=== PATIENT | male | born 1960 | race Caucasian/White ===

== ENCOUNTER → 2021-04-07 13:20 | Outpatient (CLI) | payer OTHER, SELFPAY ==
--- NOTE | 2021-04-07 13:23 | CT_ITS ---
STUDY: CT LEFT LOWER EXTREMITY WITHOUT CONTRAST REASON FOR EXAM: Varus deformity, osteoarthritis, surgical planning. TECHNIQUE: Transaxial CT imaging of the lower extremity was performed. Coronal and sagittal images were reformatted. Individualized dose optimization techniques were used for this CT. COMPARISON: None. FINDINGS: Knee: There are small marginal osteophytes, mild subchondral eburnation and mild joint space narrowing of the medial femorotibial compartment (coronal reconstruction 30). There is a cyst in the proximal tibia near the insertion site of the posterior cruciate ligament. There are small marginal osteophytes with preservation of joint space of the lateral femorotibial compartment. There are small marginal osteophytes and mild joint space narrowing of the lateral aspect of the patellofemoral compartment (axial image 168). Normal proximal tibiofibular articulation. There is a moderate-sized joint effusion. The quadriceps tendon is grossly normal. The patellar tendon is grossly normal. Normal Hoffa''s fat pad. There is an intra-articular body in the intercondylar notch (sagittal reconstruction 36) measuring 0.5 cm in AP dimension. There is a smaller intra-articular body posterior to the root of the posterior horn of the medial meniscus (coronal reconstruction 44). Hip: There is left hip arthrosis with joint space narrowing (coronal reconstructions 59) and subchondral cystic change of the lateral acetabulum. There is a small os acetabula. Ankle: Normal tibiotalar, posterior subtalar and talonavicular articulations. There is vascular calcification. CT/Extremity Lower without Contra IMPRESSION: Left knee arthrosis with joint effusion and intra-articular bodies. Electronically Signed: Salvador Ellis MD at 9:59 EDT Tel , Service support ,
== END ==
PROVIDERS: Referring Provider Orthopaedic Surgery; Visit Provider Orthopaedic Surgery
DX: M21.161 Varus deformity, not elsewhere classified, right knee (principal); M17.12 Unilateral primary osteoarthritis, left knee
CPT/HCPCS: 73700

== ENCOUNTER 2022-11-23 13:07 | Emergency (ER) | payer OTHER, SELFPAY ==
[2022-11-23 13:08] VITALS: BP 151/123; PULSE 73; RESP 12; TEMP 36.1; BMI 21.3
--- NOTE | 2022-11-23 13:11 | EKG12_ITS ---
Test Reason : CP Blood Pressure : / mmHG Vent. Rate : 074 BPM Atrial Rate : 074 BPM P-R Int : 130 ms QRS Dur : 084 ms QT Int : 398 ms P-R-T Axes : 068 068 068 degrees QTc Int : 441 ms Somatic/Motion Artifact Normal sinus rhythm Low voltage QRS Nonspecific ST abnormality Abnormal ECG Confirmed by FORTUNATO SIFUENTES, KENNEDY ([id number]), manager editorial ANDI HORAN ([id number]) on 11/25/2022 9:37:22 AM Referred By: LIDA Confirmed By:KENNEDY BUCIO MD
[2022-11-23 13:23] VITALS: PULSE 71; RESP 18; O2SAT 91
[2022-11-23 13:27] LABS: Absolute Lymphocyte Count 1.18 X10^3/uL (0.83-4.51); Absolute Neutrophil Count 1.6 X10^3/uL (2.0-7.7); Basophil# 0.02 X10^3/uL; Basophil% 0.6 % (0-1); Eosinophil# 0.27 X10^3/uL; Eosinophils% 7.7 % (0-5); Hematocrit 31.8 % (40-54); Hemoglobin 10.3 g/dL (13.0-16.5); Lymphocyte # 1.18 X10^3/ul (0.83-4.51); Lymphocyte % 33.8 % (19-41); Mean Corp Hgb Conc 32.4 g/dL (32-36); Mean Corpuscular Hgb 27.7 pg (27.0-32.0); Mean Corpuscular Volume 85.5 fL (80-94); Mean Platelet Vol. 8.7 fl (6.2-12.0); Monocyte# 0.47 X10^3/uL; Monocyte% 13.5 % (0-10); NRBC Flagged by Analyzer 0 % (0-5); Neutrophil # 1.55 X10^3/uL (2.7-7.7); Neutrophil % 44.4 % (47-70); Platelet Count 107 K/mm3 (150-450); RBC Distribution Width CV 14.3 % (11.6-14.6); RBC Distribution Width SD 44.5 fl (35.1-43.9); Red Blood Count 3.72 M/mm3 (4.6-6.2); White Blood Count 3.5 K/mm3 (4.4-11.0)
[2022-11-23 13:28] VITALS: O2SAT 100
--- NOTE | 2022-11-23 13:42 | EDS_ITS ---
HPI <JOSELINE Amaro - Last Filed: 11/23/22 20:49> History of Present Illness Chief Complaint: Palpitations Narrative Narrative: Patient presents today with his after feeling like his heart was racing for a short period of time earlier this afternoon. is the primary historian. She states patient has a history of Parkinson's, and is post nephrectomy due to stage III or IV renal cell carcinoma. She states she is frustrated with the care that he is receiving from his PCP, neurologist, and oncologist. She thinks he is overmedicated, is weak, confused, not eating, vomiting, losing weight, and falling a lot. She wants all of his medications to be reviewed today. She would like us to refer patient to new doctors. No chest pain, fever, shortness of breath, abdominal pain, or heart palpitations. 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 Kidney disease Parkinson disease Renal cell carcinoma Tonsillectomy planned Tumors Home Medications acetaminophen 650 mg tablet,extended release (Tylenol Arthritis Pain) 650 mg PO Q12H PRN 03/19/22 [History Last Taken Unknown] amlodipine 5 mg tablet tablet PO 03/19/22 [History Last Taken Unknown] carbidopa ER 25 mg-levodopa 100 mg tablet,extended release tablet PO 03/19/22 [History Last Taken Unknown] famotidine 20 mg tablet 20 mg PO DAILY 03/19/22 [History Last Taken Unknown] levothyroxine 125 mcg tablet 125 mcg PO DAILY #90 tabs 03/19/22 [Rx Last Taken Unknown] lisinopril 10 mg tablet ea PO 03/19/22 [History Last Taken Unknown] melatonin 10 mg tablet 10 mg PO QHS 03/19/22 [History Last Taken Unknown] vitamin B complex (B Complex-Vitamin B12 tablet) 1 tab PO DAILY 03/19/22 [History Last Taken Unknown] levothyroxine 175 mcg capsule 175 mcg PO DAILY 30 days #30 caps 11/23/22 [Rx Last Taken Unknown] Allergy/AdvReac Type Severity Reaction Status Date / Time No Known Allergies Allergy Verified 11/23/22 13:16 Family History Other Breast cancer Cancer Diabetes Hypertension Parkinson disease Surgical History H/O left nephrectomy Hx of appendectomy Social History Smoking Status: Former smoker alcohol intake: current alcohol intake frequency: other frequency: 3-4 times per week ROS <JOSELINE Amaro - Last Filed: 11/23/22 20:49> ROS ED Constitutional Constitutional ED: Denies chills, fever(s) or sweats Eyes Eyes: Denies blurry vision, change in vision or diplopia ENT ENT ED: Denies rhinorrhea or sore throat Cardiovascular Cardiovascular: Reports racing heartbeat; Denies chest pain or palpitations Respiratory/Chest Respiratory/Chest: Denies cough, dyspnea or dyspnea on exertion Gastrointestinal Gastrointestinal: Reports nausea and vomiting; Denies abdominal pain or diarrhea Genitourinary Genitourinary ED: Denies dysuria, hematuria or urinary frequency Musculoskeletal Musculoskeletal: Denies arthralgias, back pain or myalgias Integumentary Denies abscess, Abrasions or rash Neurologic Neurologic: Reports weakness; Denies headache(s) or paresthesias Psychiatric Psychiatric: Denies anxiety, depression or suicidal ideation Allergic/Immunologic Allergic/Immunologic ED: Denies mouth swelling, tongue swelling or urticaria EXAM <JOSELINE Amaro - Last Filed: 11/23/22 20:49> Physical Exam Const Vital Signs: 11/23/22 13:08 11/23/22 13:23 11/23/22 13:28 Temperature 97.0 F L Temperature Source Temporal Pulse Rate 73 71 Respiratory Rate 12 18 Respiratory Effort Blood Pressure 151/123 H Blood Pressure Mean 132 Pulse Ox 91 100 Oxygen Delivery Method Room Air Nasal Cannula Oxygen Flow Rate (L/min) 2 11/23/22 14:43 11/23/22 15:01 11/23/22 16:51 Temperature Temperature Source Pulse Rate 61 69 Respiratory Rate 12 18 Respiratory Effort Normal Non-Labored Blood Pressure 97/61 99/63 Blood Pressure Mean 73 75 Pulse Ox 100 99 Oxygen Delivery Method Nasal Cannula Nasal Cannula Oxygen Flow Rate (L/min) 2 2 11/23/22 18:18 Temperature 98.1 F Temperature Source Oral Pulse Rate 70 Respiratory Rate 16 Respiratory Effort Blood Pressure 112/82 H Blood Pressure Mean 92 Pulse Ox 100 Oxygen Delivery Method Room Air Oxygen Flow Rate (L/min) Positive well nourished and well developed General Appearance ED: well developed and NAD HEENT Reports moist mucous membranes Negative for trauma Eyes PERRL and EOMs intact bilaterally Neck no lymphadenopathy and supple Chest Wall inspection of chest normal Resp normal respiratory effort and clear to auscultation bilaterally Cardio regular rate, regular rhythm and no murmurs GI non-tender, non-distended and no masses Palpation: soft Extremity normal to inspection Neuro CN's II-XII intact bilaterally Neuro Narrative: Pill-rolling of fingers. Sensorium / Orientation: alert Motor Exam: general weakness Psych mental status grossly normal Skin no rashes or lesions noted, no wounds and skin turgor normal <Dr. Glenroy Mejía MD - Last Filed: 11/23/22 22:12> Physical Exam Const Vital Signs: 11/23/22 13:08 11/23/22 13:23 11/23/22 13:28 Temperature 97.0 F L Temperature Source Temporal Pulse Rate 73 71 Respiratory Rate 12 18 Respiratory Effort Blood Pressure 151/123 H Blood Pressure Mean 132 Pulse Ox 91 100 Oxygen Delivery Method Room Air Nasal Cannula Oxygen Flow Rate (L/min) 2 11/23/22 14:43 11/23/22 15:01 11/23/22 16:51 Temperature Temperature Source Pulse Rate 61 69 Respiratory Rate 12 18 Respiratory Effort Normal Non-Labored Blood Pressure 97/61 99/63 Blood Pressure Mean 73 75 Pulse Ox 100 99 Oxygen Delivery Method Nasal Cannula Nasal Cannula Oxygen Flow Rate (L/min) 2 2 11/23/22 18:18 Temperature 98.1 F Temperature Source Oral Pulse Rate 70 Respiratory Rate 16 Respiratory Effort Blood Pressure 112/82 H Blood Pressure Mean 92 Pulse Ox 100 Oxygen Delivery Method Room Air Oxygen Flow Rate (L/min) MDM <JOSELINE Amaro - Last Filed: 11/23/22 20:49> [facility] MDM Narrative Medical decision making narrative: I have personally performed a face to face assessment of the patient and have reviewed the ALEAH Note. I performed a substantive portion of the visit including all aspects of the following. My wray findings include: History is remarkable for failure to thrive. He has had a 60 pound weight loss over the past 3 months. He has metastatic renal carcinoma. He has Parkinson's disease. believes he is being overmedicated. She is questioning the chemotherapy. She is questioning many things because he is deteriorating rapidly. He has had frequent falls. He does endorse that he has been having hallucinations and has walked across the room naked. He presently denies headache. He presently denies visual symptoms. He denies cardiac respiratory symptoms. He endorses no appetite and states nothing is desirable to eat or drink. Exam is remarkable for obvious pill-rolling of his fingers, masked face and flat affect. He appears very pale. HEENT exam reveals pale conjunctive a. He does have erythema creases of his palms. Neck is supple. Trachea is midline. There is no carotid bruits. Heart is regular without murmur, gallop or rub. Lungs are clear to auscultation. Abdomen is soft nontender. Upper extremities are markable for cogwheel rigidity. Patient does have a Babinski sign on the right. He asked for his to answer questions because he believed he was answering slowly. He does have evidence of recent and remote head trauma. Medical Decision Making in light of patient's history differential diagnosis would include metastatic renal disease to brain, traumatic injury due to frequent falls and head trauma, electrolyte abnormality, will obtain CBC to assess white count and H&H. Electrolyte panel to assess renal function because of weight loss. Also liver profile was added to assess total protein and albumin to confirm suspicion for malnourishment. Chest x-ray was obtained to evaluate for pulmonary infection i.e. pneumonia. Since patient is on levothyroxine will obtain TSH. The neutropenia may be due to the chemotherapy or infection. Other additions or changes: [None] has general frustrations with the care her is receiving. She states to the nurse, if he had a different oncologist he never would have had cancer this bad. She appears to be in denial of her 's condition. asked me to review all of patient's medications including medications prescribed by the oncologist and neurologist. She had concerns for medication side effects and feels that patient should not be on all of these medications. I explained to patient's that I am not qualified to answer those questions and she should talk to his neurologist and oncologist about that. states his oncologist proposed palliative care for patient but she did not want him to do that. She does not like the idea of him receiving more medications than he is already on. Patient's TSH was elevated at 9.8. Previous laboratory work was obtained from 09-23-2022 that showed a TSH of 22. I have increased his dose of levothyroxine from 150 mg to 175 mg. Prior laboratory work in comparison to today's laboratory work is pretty similar. Patient was neutropenic then and now. Patient's H&H at that time was 12.1 and 36.5, and is now 10.3 and 31.8. Patient's creatinine was 1.36 in September and is now 1.53. Brain CT was obtained due to patient falling multiple times and hitting his head. This just showed chronic changes in the brain, nothing acute. Chest CT did not show any acute process. EKG was normal sinus rhythm. There is no reason to admit patient. I think is just frustrated with his condition and his rapid deterioration and does not understand why he is being treated with his each of his medications. Patient's vital signs are stable. He is in no acute distress. He is nontoxic-appearing. I am comfortable with patient being discharged home and following up with his care team. Patient and are comfortable with plan. Lab Data Attestation: I reviewed the patient's lab results. Lab results narrative: WBC 3.5, RBC 3.72, H&H 10.3 and 31.8, neutropenia, creatinine 1.53, BUN 24, troponin 6 ALT 12, alkaline phosphatase 31, TSH 9.8 Labs: Laboratory Results - last 24 hr 11/23/22 11/23/22 11/23/22 13:20 13:20 13:20 WBC 3.5 L RBC 3.72 L Hgb 10.3 L Hct 31.8 L MCV 85.5 MCH 27.7 MCHC 32.4 RDW Std Deviation 44.5 H RDW Coeff of Reginaldo 14.3 Plt Count 107 L MPV 8.7 Immature Gran % (Auto) 0.000 Neut % (Auto) 44.4 L Lymph % (Auto) 33.8 [place] % (Auto) 13.5 H Eos % (Auto) 7.7 H Baso % (Auto) 0.6 Absolute Neuts (auto) 1.6 L Absolute Lymphs (auto) 1.18 Nucleated RBC % 0 Sodium 138 Potassium 3.7 Chloride 103 Carbon Dioxide 29.0 Anion Gap 6 BUN 24 H Creatinine 1.53 H Estim Creat Clear Calc 54.76 Est GFR (MDRD) Af Amer 60 Est GFR (MDRD) Non-Af 50 L BUN/Creatinine Ratio 15.7 Glucose 85 Calcium 9.1 Total Bilirubin 0.70 Direct Bilirubin 0.19 AST 19 ALT 12 L Alkaline Phosphatase 31 L Troponin I High Sens 6 Total Protein 5.7 L Albumin 3.3 Globulin 2.4 TSH 11/23/22 11/23/22 13:20 15:46 WBC RBC Hgb Hct MCV MCH MCHC RDW Std Deviation RDW Coeff of Reginaldo Plt Count MPV Immature Gran % (Auto) Neut % (Auto) Lymph % (Auto) [place] % (Auto) Eos % (Auto) Baso % (Auto) Absolute Neuts (auto) Absolute Lymphs (auto) Nucleated RBC % Sodium Potassium Chloride Carbon Dioxide Anion Gap BUN Creatinine Estim Creat Clear Calc Est GFR (MDRD) Af Amer Est GFR (MDRD) Non-Af BUN/Creatinine Ratio Glucose Calcium Total Bilirubin Direct Bilirubin AST ALT Alkaline Phosphatase Troponin I High Sens 6 Total Protein Albumin Globulin TSH 9.80 H Radiography Diagnostic Testing: Clinical Impression(s) from Imaging Studies Brain CT 11/23/22 13:52 IMPRESSION: Chronic involutional changes of the brain. Electronically Signed: Tacho Landin MD at 14:34 EST Reading Location ID and State: [id number] , Service support , Chest X-Ray 11/23/22 13:55 IMPRESSION: No acute process Electronically Signed: Tacho Landin MD at 14:15 EST , EKG Initial EKG: Comments: Normal sinus rhythm. 74 bpm, no ST elevation. This EKG also reviewed and interpreted by attending ED physician. Prior EKG tracings: available for review (EKG from September 23, 2022 shows normal sinus rhythm, septal infarct) <Dr. Glenroy Mejía MD - Last Filed: 11/23/22 22:12> MDM MDM Narrative Medical decision making narrative: I have personally performed a face to face assessment of the patient and have reviewed the ALEAH Note. I performed a substantive portion of the visit including all aspects of the following. My wray findings include: History is remarkable for failure to thrive. He has had a 60 pound weight loss over the past 3 months. He has metastatic renal carcinoma. He has Parkinson's disease. believes he is being overmedicated. She is questioning the chemotherapy. She is questioning many things because he is deteriorating rapidly. He has had frequent falls. He does endorse that he has been having hallucinations and has walked across the room naked. He presently denies headache. He presently denies visual symptoms. He denies cardiac respiratory symptoms. He endorses no appetite and states nothing is desirable to eat or drink. Exam is remarkable for obvious pill-rolling of his fingers, masked face and flat affect. He appears very pale. HEENT exam reveals pale conjunctive a. He does have erythema creases of his palms. Neck is supple. Trachea is midline. There is no carotid bruits. Heart is regular without murmur, gallop or rub. Lungs are clear to auscultation. Abdomen is soft nontender. Upper extremities are markable for cogwheel rigidity. Patient does have a Babinski sign on the right. He asked for his to answer questions because he believed he was answering slowly. He does have evidence of recent and remote head trauma. Medical Decision Making in light of patient's history differential diagnosis would include metastatic renal disease to brain, traumatic injury due to frequent falls and head trauma, electrolyte abnormality, will obtain CBC to assess white count and H&H. Electrolyte panel to assess renal function because of weight loss. Also liver profile was added to assess total protein and albumin to confirm suspicion for malnourishment. Chest x-ray was obtained to evaluate for pulmonary infection i.e. pneumonia. Since patient is on levothyroxine will obtain TSH. The neutropenia may be due to the chemotherapy or infection. Other additions or changes: [None] Lab Data Labs: Laboratory Results - last 24 hr 11/23/22 11/23/22 11/23/22 13:20 13:20 13:20 WBC 3.5 L RBC 3.72 L Hgb 10.3 L Hct 31.8 L MCV 85.5 MCH 27.7 MCHC 32.4 RDW Std Deviation 44.5 H RDW Coeff of Reginaldo 14.3 Plt Count 107 L MPV 8.7 Immature Gran % (Auto) 0.000 Neut % (Auto) 44.4 L Lymph % (Auto) 33.8 [place] % (Auto) 13.5 H Eos % (Auto) 7.7 H Baso % (Auto) 0.6 Absolute Neuts (auto) 1.6 L Absolute Lymphs (auto) 1.18 Nucleated RBC % 0 Sodium 138 Potassium 3.7 Chloride 103 Carbon Dioxide 29.0 Anion Gap 6 BUN 24 H Creatinine 1.53 H Estim Creat Clear Calc 54.76 Est GFR (MDRD) Af Amer 60 Est GFR (MDRD) Non-Af 50 L BUN/Creatinine Ratio 15.7 Glucose 85 Calcium 9.1 Total Bilirubin 0.70 Direct Bilirubin 0.19 AST 19 ALT 12 L Alkaline Phosphatase 31 L Troponin I High Sens 6 Total Protein 5.7 L Albumin 3.3 Globulin 2.4 TSH 11/23/22 11/23/22 13:20 15:46 WBC RBC Hgb Hct MCV MCH MCHC RDW Std Deviation RDW Coeff of Reginaldo Plt Count MPV Immature Gran % (Auto) Neut % (Auto) Lymph % (Auto) [place] % (Auto) Eos % (Auto) Baso % (Auto) Absolute Neuts (auto) Absolute Lymphs (auto) Nucleated RBC % Sodium Potassium Chloride Carbon Dioxide Anion Gap BUN Creatinine Estim Creat Clear Calc Est GFR (MDRD) Af Amer Est GFR (MDRD) Non-Af BUN/Creatinine Ratio Glucose Calcium Total Bilirubin Direct Bilirubin AST ALT Alkaline Phosphatase Troponin I High Sens 6 Total Protein Albumin Globulin TSH 9.80 H Radiography Diagnostic Testing: Clinical Impression(s) from Imaging Studies Brain CT 11/23/22 13:52 IMPRESSION: Chronic involutional changes of the brain. Electronically Signed: Tacho Landin MD at 14:34 EST , Chest X-Ray 11/23/22 13:55 IMPRESSION: No acute process Electronically Signed: Tacho Landin MD at 14:15 EST , Discharge Plan Triage Chief Complaint: Palpitations ED Midlevel Provider: Valentine Hull ED Provider: Glenroy Mejía Dx/Rx/DC Orders Clinical Impression: Hypothyroidism, Renal cell carcinoma, Dizziness, Adult failure to thrive Instructions: ED Dizziness, Uncertain Cause, ED Hypothyroidism Prescriptions: New levothyroxine 175 mcg capsule 175 mcg PO DAILY 30 Days Qty: 30 0RF No Action amlodipine 5 mg tablet PO lisinopril 10 mg tablet PO Label Comments: TAKE 1 TABLET BY MOUTH ONCE DAILY melatonin 10 mg tablet 10 mg PO QHS carbidopa-levodopa 25-100 mg tablet extended release PO famotidine 20 mg tablet 20 mg PO DAILY acetaminophen [Tylenol Arthritis Pain] 650 mg tablet extended release 650 mg PO Q12H PRN vitamin B complex [B Complex-Vitamin B12] Tablet 1 tab PO DAILY levothyroxine 125 mcg tablet 125 mcg PO DAILY Qty: 90 3RF Primary Care Provider: Care Physician,No Primary Referrals: Care Physician,No Primary [Primary Care Provider] - 3-5 Days Activity Restrictions/Additional Instructions: Please follow-up with PCP in 3 to 5 days to discuss concerns. Disposition Disposition: Home, Self Care Discharge Date/Time: 11/23/22 19:00
[2022-11-23 13:47] LABS: Anion Gap 6 (5-15); BUN 24 mg/dL (7-18); BUN/Creat Ratio 15.7 RATIO (10-20); Calcium,Total 9.1 mg/dL (8.5-10.1); Chloride 103 mmol/L (98-107); Creatinine, Serum 1.53 mg/dL (0.70-1.30); EST Glomerular Filtration Rate 50 mL/min (>60); Est Glom Filt Rate - Afr Amer 60 mL/min (>60); Estimated Creatinine Clearance 54.76 ml/min; Glucose 85 mg/dL (74-106); Potassium 3.7 mmol/L (3.5-5.1); Sodium Level 138 mmol/L (136-145); Troponin-I HS (w/2H Reflex) 6 pg/mL (3.0-78.0)
--- NOTE | 2022-11-23 13:52 | CT_ITS ---
STUDY: CT BRAIN WITHOUT CONTRAST REASON FOR EXAM: Male, 62 years old. FELL TODAY, LAST 4 MONTHS HAS BEEN HAVING DIZZINESS AND WEAKNESS, HTN, HX-LUNG CA HAD ORAL CHEMO, PARKINSON''S RADIATION DOSAGE (If Supplied By Facility): CTDIvol = ( 44.99 ) mGy, DLP = ( 779.24 ) mGycm TECHNIQUE: Transaxial CT imaging of the brain was performed without administration of intravenous contrast material. Individualized dose optimization techniques were used for this CT. COMPARISON: None. FINDINGS: Normal soft tissue structures. Normal calvarium. No visualized skull fracture or subdural hematoma. No visualized lytic or blastic lesions of the bony structures. No parenchymal edema or mass effect is seen. There is mild cerebral atrophy with widening of the extra-axial spaces and ventricular dilatation. Normal white matter tracts of the cerebral hemispheres. Normal basal ganglia and thalami. Normal brainstem. Normal cerebellum. There is no intracranial hemorrhage. There are no findings of an acute ischemic infarction. There is mucoperiosteal inflammatory disease of the paranasal sinuses consistent with mild chronic sinusitis. CT/Brain/Head without Contrast IMPRESSION: Chronic involutional changes of the brain. Electronically Signed: Tacho Landin MD at 14:34 EST ,
--- NOTE | 2022-11-23 13:55 | RAD_ITS ---
STUDY: X-RAY CHEST REASON FOR EXAM: Male, 62 years old. chest pain TECHNIQUE: 2 AP portable view of the chest. COMPARISON: None. FINDINGS: The lungs are clear and expanded. There is no demonstrated pleural abnormality. Normal size heart. Normal mediastinum and maria m. Normal visualized pulmonary arteries. There is atherosclerotic calcification of the aortic arch with tortuosity. Normal visualized thoracic spine. Normal visualized ribs, clavicles, and shoulders. There is no demonstrated abnormality of the visualized soft tissue structures of the upper abdomen. RAD/Chest 1 View (Portable) IMPRESSION: No acute process Electronically Signed: Tacho Landin MD at 14:15 EST ,
[2022-11-23 14:41] LABS: AST(SGOT) 19 U/L (15-37); Alanine Aminotransfer ALT/SGPT 12 U/L (16-61); Albumin, Serum 3.3 g/dL (3.2-5.0); Alkaline Phosphatase 31 U/L (45-117); Bilirubin, Direct 0.19 mg/dL (0.00-0.30); Globulin 2.4 g/dL (2.2-4.2); Protein, Total 5.7 g/dL (6.4-8.2)
[2022-11-23 15:01] VITALS: BP 97/61; PULSE 61; RESP 12; O2SAT 100
[2022-11-23 15:24] LABS: Reflex Troponin-HS? (from REC) Y
[2022-11-23 16:12] LABS: Troponin-I HS 6 pg/mL (3.0-78.0)
[2022-11-23 16:51] VITALS: BP 99/63; PULSE 69; RESP 18; O2SAT 99
[2022-11-23 18:18] VITALS: BP 112/82; PULSE 70; RESP 16; TEMP 36.7; O2SAT 100
== END 2022-11-23 19:00 | disposition home or self-care (01) ==
PROVIDERS: Physician Assistant; Emergency Provider Emergency Medicine; Visit Provider Emergency Medicine
DX: R42 Dizziness and giddiness (principal); D70.9 Neutropenia, unspecified; G20 Parkinson's disease; C64.9 Malignant neoplasm of unspecified kidney, except renal pelvis; E03.9 Hypothyroidism, unspecified; Z87.891 Personal history of nicotine dependence; R62.7 Adult failure to thrive; R00.2 Palpitations; R11.2 Nausea with vomiting, unspecified
CPT/HCPCS: 70450; 71045; 80048; 80076; 84443; 84484; 85025; 93005; 99283; A4216